=== PATIENT | female | born 1980 | race Caucasian/White ===

== ENCOUNTER → 2020-12-10 17:41 | Outpatient (CLI) | payer OTHER, SELFPAY ==
--- NOTE | ~2020-12-10 | XR_ITS ---
XR hip BI 2V w AP pelvis DATE: 12/10/2020 19:18 INDICATION: Bilateral hip pain TECHNIQUE: AP pelvis. AP and lateral views of each hip. COMPARISON: None FINDINGS: The pubic symphysis and sacroiliac joints are intact. Hip joint spaces are symmetric and we ll preserved. No pelvic fracture or bone destruction. No fracture, dislocation, avascular necrosis or bone destruction. IMPRESSION: No significant abnormality Reviewed, dictated and finalized at location A. IMPRESSION: No significant abnormality
--- NOTE | ~2020-12-10 | XR_ITS ---
XR_[id number]_CR DATE: 12/10/2020 19:18 INDICATION: Neck pain TECHNIQUE: AP, open-mouth, lateral, swimmer views COMPARISON: None FINDINGS: C1 and C2 are normally aligned and the odontoid process is intact. No fracture or dislocati on, locked facet or prevertebral soft tissue swelling. Cervical interspaces are relatively preserved. IMPRESSION: No significant abnormality Reviewed, dictated and finalized at Location [facility]. Reviewed, dictated and finalized at location A. IMPRESSION: No significant abnormality
== END ==
PROVIDERS: PCP Physician Assistant; Visit Provider Physician Assistant
DX: M25.551 Pain in right hip (principal); M54.2 Cervicalgia
CPT/HCPCS: 72040; 73521